=== PATIENT | female | born 1985 | race Caucasian/White ===

== ENCOUNTER 2019-04-29 12:09 | Emergency (ER) | payer MEDICAID ==
[~2019-04-29] VITALS: Ht 157.5 cm; Wt 49.9 kg
[2019-04-29 12:11] VITALS: BP 148/90
--- NOTE | 2019-04-29 12:11 | NUR ---
ED Nurse Note: pt brought by RA from resident area due to screaming and yelling. pt agitated, restless and talkitive. pt more cooperative with female nurse. follow command but wants to talk after meds and food. AAO x4. respirations even and non-labored noted. denies SI/HI. denies hearing voices or seeing things. pt mentioned that fight with boyfriend and he left. asked nurse to call mom who lives at [place]. unable to get phone number. will try assess again.
[2019-04-29] MEDS ORDERED: PROZAC10 MG ORAL (12:14)
[2019-04-29] MEDS ORDERED: LORazepam 1mg tab ORAL ONE (12:30)
--- NOTE | 2019-04-29 12:40 | NUR ---
ED Nurse Note: SW at the bed side.
--- NOTE | 2019-04-29 12:53 | NUR ---
ED Nurse Note: meds given as ordered. sandwitches and juices provide as requested.
--- NOTE | 2019-04-29 12:57 | NUR ---
Social Service Note Unable to obtain clear history of events prior to admission. Patient provided her mother Zarina Oconnor contact information [phone]. Unable to leave a message as the voice mail is full. Patient with a flight of ideas and eludes to possible substance abuse. Patient states she is not getting psychiatric care and she will not be locked away. Patient denies SI/HI. Recommend medical clearance in the event psychiatric is required. Patient denies being homeless but is to upset to discuss living situation. Will follow up with patient's mother.
[2019-04-29 13:45] LABS: APPEARANCE,URINE CLEAR; BILIRUBIN, URINE NEGATIVE (NEGATIVE); COLOR,URINE PALE YELLOW; GLUCOSE, URINE (UA) NEGATIVE (NEGATIVE); KETONES,URINE NEGATIVE (NEGATIVE); LEUKOCYTE ESTERASE ,URINE NEGATIVE (NEGATIVE); NITRITE,URINE NEGATIVE (NEGATIVE); PH,URINE 7 (4.5-8.0); PROTEIN,URINE 1+ (NEGATIVE); UROBILINOGEN,URINE NORMAL MG/DL (0.0-1.0)
[2019-04-29 13:50] LABS: BASOPHILS % (AUTO) 0.8 % (0.0-2.0); EOSINOPHILS % (AUTO) 0.6 % (0.0-3.0); HEMATOCRIT 43.5 % (37.0-47.0); HEMOGLOBIN 14.7 G/DL (12.0-16.0); LYMPHOCYTES % (AUTO) 21.3 % (20.0-45.0); MEAN CORPUSCULAR VOLUME 92 FL (80-99); MONOCYTES % (AUTO) 10.1 % (1.0-10.0); NEUTROPHILS % (AUTO) 67.2 % (45.0-75.0); PLATELET COUNT 288 K/UL (150-450); RED BLOOD COUNT 4.73 M/UL (4.20-5.40); RED CELL DISTRIBUTION WIDTH 11.3 % (11.6-14.8); WHITE BLOOD COUNT 9.2 K/UL (4.8-10.8)
[2019-04-29 13:56] LABS: ANION GAP 10 mmol/L (5-15); BLOOD UREA NITROGEN 7 mg/dL (7-18); CARBON DIOXIDE 28 MMOL/L (21-32); CHLORIDE 107 MMOL/L (98-107); CREATININE 0.8 MG/DL (0.55-1.30); POTASSIUM 3.6 MMOL/L (3.5-5.1); SODIUM 145 MMOL/L (136-145)
[2019-04-29 13:59] LABS: ALANINE AMINOTRANSFERASE 26 U/L (12-78); ALBUMIN 3.9 G/DL (3.4-5.0); ALBUMIN/GLOBULIN RATIO 1.2 (1.0-2.7); ALKALINE PHOSPHATASE 90 U/L (46-116); ASPARTATE AMINO TRANSFERASE 28 U/L (15-37); BILIRUBIN,TOTAL 0.6 MG/DL (0.2-1.0)
--- NOTE | 2019-04-29 14:20 | Emergency Room Report ---
History of Present Illness General Chief Complaint: Behavioral Complaint Source: Patient Present Illness HPI 33-year-old female presents ED for evaluation. Brought in by EMS. Found an apartment building asking for help. States that she was kicked out of apartment by boyfriend. 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 States that she needs help. Denies SI or HI. Denies hearing voices. No other aggravating or relieving factors. Denies any other associated symptoms Allergies: Coded Allergies: No Known Allergies (Unverified , 04/29/19) Patient History Past Medical History: psych hx Past Surgical History: none Pertinent Family History: none Social History: Reports: drug use; Denies: smoking, alcohol use Last Menstrual Period: unknown Now: No Immunizations: UTD Reviewed Nursing Documentation: PMH: Agreed; PSxH: Agreed Nursing Documentation-PMH Past Medical History: No History, Except For Review of Systems All Other Systems: negative except mentioned in HPI Physical Exam Vital Signs Date Time Temp Pulse Resp B/P (MAP) Pulse Ox O2 Delivery O2 Flow Rate FiO2 04/29/19 12:11 99.1 84 16 148/90 (109) 100 Room Air Sp02 EP Interpretation: reviewed, normal General Appearance: alert, GCS 15, non-toxic, mild distress Head: normocephalic Eyes: bilateral eye normal inspection, bilateral eye PERRL ENT: normal ENT inspection Neck: normal inspection Respiratory: chest non-tender, lungs clear, normal breath sounds, speaking full sentences Cardiovascular #1: regular rate, rhythm, no edema Gastrointestinal: normal bowel sounds, non tender, soft, non-distended, no guarding, no rebound Rectal: deferred Genitourinary: no CVA tenderness Musculoskeletal: back normal Neurologic: other - anxious, crying Psychiatric: other - anxious, crying Skin: no rash Lymphatic: normal inspection Medical Decision Making Homeless Attestation I, The treating physician Dr. Rivera, have assessed and agrees that patient is medically stable for discharge to an outpatient disposition. Diagnostic Impression: Primary Impression: Substance abuse Additional Impression: Behavioral change ER Course Hospital Course 33-year-old female presents ED for evaluation. Crying stating that she needs help. Differential diagnoses include: Psychosis, EtOH, drug abuse Clinical course patient placed on stretcher. After initial history, physical exam reveals female in mild distress. Crying and yelling. Stating that she needs help. States that she was kicked out of her apartment by her boyfriend. Admits to drug use. Says she has a psychiatric history. Denies SI or HI. Ordered Ativan, Zyprexa here. I ordered labs Labs reviewed-electrolytes okay, no leukocytosis, hemoglobin/hematocrit stable, tox panel + for multilple substances Patient is more calm and collected after medication. Evaluated by service coordinator who agrees that patient is not a danger to self or others. patient evaluated by Dr. Morgan. Agrees that patient is not a danger to self or others. Assessment states that behavior is more likely related to substance abuse. Agree with her assessment However patient does have a child that is in the custody of the father. [facility] was contacted and confirms that patient does not have custody. Allowed to rest. Food provided. Homeless checklist completed. Will discharge to home with mental health referrals i. I feel this is a highly complex case requiring extensive working including EKG/Rhythm strip, Xray/CT/US, Blood/urine lab work, repeat exams while in ED, and administration of strong opiates/narcotics for pain control, admission to hospital or close patient follow up. Diagnosis -drug abuse, behavioral change Stable and discharged to home. Followup with PMD/psych. Return to ED if symptoms recur or worsen Labs Test 04/29/19 13:30 White Blood Count 9.2 K/UL (4.8-10.8) Red Blood Count 4.73 M/UL (4.20-5.40) Hemoglobin 14.7 G/DL (12.0-16.0) Hematocrit 43.5 % (37.0-47.0) Mean Corpuscular Volume 92 FL (80-99) Mean Corpuscular Hemoglobin 31.0 PG (27.0-31.0) Mean Corpuscular Hemoglobin Concent 33.7 G/DL (32.0-36.0) Red Cell Distribution Width 11.3 % (11.6-14.8) Platelet Count 288 K/UL (150-450) Mean Platelet Volume 5.6 FL (6.5-10.1) Neutrophils (%) (Auto) 67.2 % (45.0-75.0) Lymphocytes (%) (Auto) 21.3 % (20.0-45.0) Monocytes (%) (Auto) 10.1 % (1.0-10.0) Eosinophils (%) (Auto) 0.6 % (0.0-3.0) Basophils (%) (Auto) 0.8 % (0.0-2.0) Urine Color Pale yellow Urine Appearance Clear Urine pH 7 (4.5-8.0) Urine Specific Falcon 1.010 (1.005-1.035) Urine Protein 1+ (NEGATIVE) Urine Glucose (UA) Negative (NEGATIVE) Urine Ketones Negative (NEGATIVE) Urine Blood 1+ (NEGATIVE) Urine Nitrite Negative (NEGATIVE) Urine Bilirubin Negative (NEGATIVE) Urine Urobilinogen Normal MG/DL (0.0-1.0) Urine Leukocyte Esterase Negative (NEGATIVE) Urine RBC 0-2 /HPF (0 - 2) Urine WBC 0-2 /HPF (0 - 2) Urine Squamous Epithelial Cells Occasional /LPF Urine Bacteria Occasional /HPF (NONE) Urine HCG, Qualitative Negative (NEGATIVE) Sodium Level 145 MMOL/L (136-145) Potassium Level 3.6 MMOL/L (3.5-5.1) Chloride Level 107 MMOL/L (98-107) Carbon Dioxide Level 28 MMOL/L (21-32) Anion Gap 10 mmol/L (5-15) Blood Urea Nitrogen 7 mg/dL (7-18) Creatinine 0.8 MG/DL (0.55-1.30) Estimat Glomerular Filtration Rate > 60 mL/min (>60) Glucose Level 99 MG/DL (74-106) Calcium Level 9.0 MG/DL (8.5-10.1) Total Bilirubin 0.6 MG/DL (0.2-1.0) Aspartate Amino Transf (AST/SGOT) 28 U/L (15-37) Alanine Aminotransferase (ALT/SGPT) 26 U/L (12-78) Alkaline Phosphatase 90 U/L (46-116) Total Protein 7.1 G/DL (6.4-8.2) Albumin 3.9 G/DL (3.4-5.0) Globulin 3.2 g/dL Albumin/Globulin Ratio 1.2 (1.0-2.7) Salicylates Level 3.0 ug/mL (2.8-20) Urine Opiates Screen Positive (NEGATIVE) Acetaminophen Level < 2 MCG/ML (10-30) Urine Barbiturates Screen Negative (NEGATIVE) Phencyclidine (PCP) Screen Negative (NEGATIVE) Urine Amphetamines Screen Positive (NEGATIVE) Urine Benzodiazepines Screen Positive (NEGATIVE) Urine Cocaine Screen Negative (NEGATIVE) Urine Marijuana (THC) Screen Positive (NEGATIVE) Serum Alcohol < 3 mg/dL Last Vital Signs Date Time Temp Pulse Resp B/P (MAP) Pulse Ox O2 Delivery O2 Flow Rate FiO2 04/29/19 12:11 84 16 Room Air 04/29/19 12:11 99.1 148/90 100 Status: improved Disposition: HOME, SELF-CARE Condition: Stable Hitesh Rivera MD Apr 29, 2019 14:20
--- NOTE | 2019-04-29 14:25 | NUR ---
Social Service Note ARETHA spoke with patient's mother Zarina to obtain history. Zarina states pateint is bipolar and believes could be schizophrenic. Patient had a [employer]cf[employer] boyfriend who has custody of their dgt Olga. Boyfriend has tired multiple times to provide support of patient in obtaining mental health and substance abuse services. At this time boyfriend can no longer allow patient to see their dgt due to her behaviors. Patient lives with a new boyfriend in which she gets high with and has an aggressive relationship with. Patient with no source of income and mother believes patient stays with poor choices for financial support and drugs. 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 SW discussed patient's erratic thought pattern. Mother states patient has texted her that she wants to but doesn't indicate an active plan. SW explained criteria for a 5150. Patient currently denying SI/HI and is not willing to go voluntary. SW also explained that with patient's insurance [employer] [facility] placement options will be limited. Mother feels patient requires psychiatric inpatient care. Mother lives in [place] and is unable to come to [place]. Mother states she had a friend who was assisting however because of patient's behaviors is no longer willing to help. ARETHA will discuss with ER .
--- NOTE | 2019-04-29 15:29 | NUR ---
ED Nurse Note: DR RIDDLE AT BEDSIDE. PT CONTINUES TO DENIES SI/HI.
--- NOTE | 2019-04-29 15:54 | NUR ---
ED Nurse Note: SPOKE WITH DAVID FROM [facility] WHO STATES THAT BASED ON CURRENT SITUATION, NO CLAIM NEEDS TO BE MADE AND THAT THE CHILD APPEARS TO BE SAFE. [facility] WILL BE CALLED BACK IF MORE INFORMATION IS GATHERED THAT MAY INDICATE HARM TO CHILD.
--- NOTE | 2019-04-29 18:49 | NUR ---
HAND-OFF: REPORT GIVEN TO ESETLLA ROSARIO.
[2019-04-29 19:00] VITALS: BP 127/56
[2019-04-29 20:28] VITALS: BP 127/56
--- NOTE | 2019-04-29 20:28 | NUR ---
ED Nurse Note: pt is cleared to be d/c per ERMD and psychiatrist Dr. Murray, pt reports she needs bus token to go see her baby. pt given list of [facility] and was given information regarding 24 hr homeless [facility], pt advised to stop doing illecit drugs, pt given food and ate all the dinner. pt has weather appropriate clothing. pt given list of mental health referral for follow up and advised to follow up for continuity of care. pt using inappropriate language and demonstrating aggressive behaviors towards staff such as "fuck you" and stepping closer to the nurse while holding a fist, pt raising voices, pt was escorted out by security.
--- NOTE | 2019-04-30 01:30 | Consultation ---
DATE OF CONSULTATION: 04/29/2019 NOTE: POOR AUDIO HISTORY OF PRESENT ILLNESS: The patient is a 33-year-old female with a history of substance use disorder, depression, anxiety, borderline personality who has been admitted to the hospital for medical problems. The patient admitted to the ER for medical stabilization and evaluation. The patient's urine tox is positive for amphetamine, benzodiazepine, and opiate pain medication. The patient was severely agitated, apparently the patient house or apartment. She was brought into the emergency room. During the evaluation, the patient was given Zyprexa and Ativan. She was calm, able to answer the questions. At times, she was drowsy and dozing off. The patient denied any suicidal or homicidal ideation. The patient stated that she has a 7-year-old daughter who is with her ex and would like to go back to her ex's house. The patient stated on a couple of questions that the father of her child and the patient are in the middle of a custody james. The patient knew the date, place, and situation she is in. She again denied suicidal ideation, was calm. PAST PSYCHIATRY HISTORY: She denied any suicidal attempts in the past. Denied psychiatric hospitalization. cutting herself in the past and was seeing a psychiatrist on a regular basis. The patient stated currently she does not have a psychiatrist and is not taking any psychotropic medication. In addition borderline personality disorder. PAST MEDICAL HISTORY: Nonsignificant. ALLERGIES: No known drug allergies. SUBSTANCE ABUSE HISTORY: Include crystal meth, oxycodone, as well as marijuana. MENTAL STATUS EXAMINATION: The patient is alert and oriented times self, place, and situation. Mood is neutral. Affect was full range. Thought process is linear and goal oriented. Thought content, no suicidal or homicidal ideation. No psychotic symptoms. Insight and judgment fair. ASSESSMENT: Stafford I Polysubstance dependence. Stafford II Borderline personality. Stafford III Altered mental status. Stafford IV Low. Stafford V 50. PLAN: 1. The patient is not in any danger to self or others. 2. The patient is not meeting the criteria for 5150 hold. 3. The patient may be discharged to self care. 4. [facility] will be notified. Discussed with the ER doctor. Clint Morgan M.D. DR: Jo JOB#: [id number] CC: [id number]
== END 2019-04-29 20:28 | disposition home or self-care (01) ==
LOC: EDBD 12:09 → EMR 12:40
DX: F60.3 Borderline personality disorder (principal); F91.9 Conduct disorder, unspecified; F15.10 Other stimulant abuse, uncomplicated; F12.10 Cannabis abuse, uncomplicated; F13.10 Sedative, hypnotic or anxiolytic abuse, uncomplicated; Z59.0 Homelessness; F32.9 Major depressive disorder, single episode, unspecified; F41.9 Anxiety disorder, unspecified; R41.82 Altered mental status, unspecified
CPT/HCPCS: 36415; 80053; 80307; 80329; 81003; 81025; 85025; 99284